=== PATIENT | female | born 1945 | race American Indian/Alaskan Native ===

== ENCOUNTER 2019-08-25 09:49 | Outpatient (CLI) | payer MEDICARE, BC, OTHER ==
[~2019-08-25 09:49] MED LIST: GARL1TAB2 PO; LANS30TA4 PO; LEVO100T PO; METF-436 PO; OMEG1CAP2 PO; ROSU5TAB4 PO; VITC500T PO
[2019-08-25 10:28] LABS: D-DIMER 0.23 MG/L FEU (0-0.50)
== END 2019-08-25 23:59 | disposition home or self-care (01) ==
LOC: LAB 09:49
PROVIDERS: ATTEND Family Medicine
DX: R60.0 Localized edema (principal); E11.9 Type 2 diabetes mellitus without complications; F17.200 Nicotine dependence, unspecified, uncomplicated
CPT/HCPCS: 36415; 85379

== ENCOUNTER 2021-08-29 16:04 | Emergency (ER) | payer MEDICARE, BC, OTHER ==
[~2021-08-29] VITALS: Ht 167.6 cm; Wt 87.3 kg
[2021-08-29 16:15] VITALS: BP 117/60
[2021-08-29 17:06] LABS: BASOPHILS % (AUTO) 0.4 % (0-1); EOSINOPHILS # (AUTO) 0.1 X10'3 (0-0.9); HEMATOCRIT 37.9 % (35.0-45.0); HEMOGLOBIN 12.9 g/dl (12.0-16.0); LYMPHOCYTES # (AUTO) 2.6 X10'3 (1.1-4.8); LYMPHOCYTES % (AUTO) 36.2 % (21-51); MEAN CORPUSCULAR HEMOGLOBIN 28.5 PG (27.0-31.0); MEAN CORPUSCULAR VOLUME 83.9 FL (78-98); MEAN PLATELET VOLUME 9.3 FL (7.4-10.4); MONOCYTES # (AUTO) 0.6 X10'3 (0-0.9); MONOCYTES % (AUTO) 7.9 % (2-12); NEUTROPHILS % (AUTO) 54.5 % (42-75); PLATELET COUNT 194 X10'3 (140-440); RED BLOOD COUNT 4.52 X10'6 (4.20-5.60); RED CELL DISTRIBUTION WIDTH 13.9 % (11.5-14.5); WHITE BLOOD COUNT 7.3 X10'3 (4.5-11.0)
[2021-08-29 17:31] LABS: ALANINE AMINOTRANSFERASE 28 U/L (12-78); ALBUMIN 3.6 G/DL (3.4-5.0); ALBUMIN/GLOBULIN RATIO 1.1 (1.1-1.5); ALKALINE PHOSPHATASE 100 IU/L (46-116); ANION GAP 10 (8-16); ASPARTATE AMINO TRANSFERASE 23 U/L (10-37); BILIRUBIN,TOTAL 0.3 MG/DL (0.1-1.0); BLOOD UREA NITROGEN 10 MG/DL (7-18); BUN/CREATININE RATIO 9.9 (6.6-38.0); CALCIUM 8.7 MG/DL (8.5-10.1); CHLORIDE 103 MMOL/L (99-107); CREATININE 1.01 MG/DL (0.40-0.90); GLUCOSE 113 MG/DL (70-104); LIPASE 86 U/L (73-393); POTASSIUM 4.3 MMOL/L (3.5-5.1); SODIUM 138 MMOL/L (135-145); eGFR 53 ML/MIN
[2021-08-29] MEDS ORDERED: iohexol 350MG/ML 100ml bottle IV ONE (17:34)
[2021-08-29] MEDS ORDERED: MESSAGE TO NURSING PO SCH (17:45)
[2021-08-29] MEDS ORDERED: ondansetron/PF 4mg/2ml inj IV ONE (18:00)
[2021-08-29] MEDS ORDERED: ketorolac tromethamine 15mg/ml inj. IV ONE (18:00)
[2021-08-29] MEDS ORDERED: morphine 4 MG/ML inj SYRINge IV ONE (18:00)
[2021-08-29 18:40] LABS: CLARITY,URINE CLEAR (Clear); COLOR,URINE STRAW (Yellow); GLUCOSE, URINE NEGATIVE (Neg); KETONES,URINE NEGATIVE (Neg); OCCULT BLOOD,URINE NEGATIVE (Neg); PROTEIN,URINE NEGATIVE (Neg); UA COLLECTION TYPE CLN CATCH MIDSTREAM
[2021-08-29 18:41] LABS: LEUKOCYTE ESTERASE ,URINE NEGATIVE (Neg); NITRITES, URINE NEGATIVE (Neg); UROBILINOGEN,URINE 0.2 E.U/dL (0.2-1.0)
[2021-08-29] MEDS ORDERED: ORPH100T2 PO (18:45)
== END 2021-08-29 19:34 | disposition home or self-care (01) ==
LOC: ER 16:04
DX: M54.50 Low back pain, unspecified (principal); I10 Essential (primary) hypertension; R30.0 Dysuria; E78.00 Pure hypercholesterolemia, unspecified; K21.9 Gastro-esophageal reflux disease without esophagitis; E11.9 Type 2 diabetes mellitus without complications; G89.29 Other chronic pain; Z90.49 Acquired absence of other specified parts of digestive tract; Z90.710 Acquired absence of both cervix and uterus; Z98.890 Other specified postprocedural states; Z88.6 Allergy status to analgesic agent; Z88.8 Allergy status to other drugs, medicaments and biological substances; Z79.899 Other long term (current) drug therapy
CPT/HCPCS: 36415; 71275; 74174; 80053; 81003; 83605; 83690; 84145; 84484; 85025; 96374; 96375; 99285; J1885; J2270; J2405; Q9967

== ENCOUNTER 2022-04-14 09:58 | Emergency (ER) | payer MEDICARE, BC, OTHER ==
[~2022-04-14] VITALS: Ht 152.4 cm; Wt 85.9 kg
[~2022-04-14 09:58] MED LIST changes: +ORPH100T2 PO
[2022-04-14 10:09] VITALS: BP 106/62
[2022-04-14] MEDS ORDERED: SULF1TAB49 PO (14:02)
[2022-04-14] MEDS ORDERED: sulfamethoxazole/trimethoprim DS (800/160mg) tablet PO ONE (14:05)
== END 2022-04-14 14:11 | disposition home or self-care (01) ==
LOC: ER 09:59
DX: N76.4 Abscess of vulva (principal); E78.00 Pure hypercholesterolemia, unspecified; K21.9 Gastro-esophageal reflux disease without esophagitis; E11.9 Type 2 diabetes mellitus without complications; G89.29 Other chronic pain; Z90.49 Acquired absence of other specified parts of digestive tract; Z90.710 Acquired absence of both cervix and uterus; Z98.890 Other specified postprocedural states; Z88.6 Allergy status to analgesic agent; Z79.2 Long term (current) use of antibiotics; Z79.899 Other long term (current) drug therapy
CPT/HCPCS: 56405; 99284

== ENCOUNTER 2023-02-22 10:23 | Emergency (ER) | payer MEDICARE, BC, OTHER ==
[~2023-02-22] VITALS: Ht 152.4 cm; Wt 82.4 kg
[~2023-02-22 10:23] MED LIST changes: -ORPH100T2 PO; +ORPH100T4 PO
[2023-02-22] MEDS ORDERED: FURO-149 PO ×2 (12:02→12:26)
[2023-02-22 12:28] VITALS: BP 116/59
== END 2023-02-22 12:30 | disposition home or self-care (01) ==
LOC: ER 10:23
DX: R60.0 Localized edema (principal); M79.604 Pain in right leg; E78.00 Pure hypercholesterolemia, unspecified; K21.9 Gastro-esophageal reflux disease without esophagitis; E11.9 Type 2 diabetes mellitus without complications; G89.29 Other chronic pain; M54.9 Dorsalgia, unspecified; Z90.49 Acquired absence of other specified parts of digestive tract; Z88.6 Allergy status to analgesic agent; Z88.8 Allergy status to other drugs, medicaments and biological substances; Z79.899 Other long term (current) drug therapy
CPT/HCPCS: 93970; 99284

== ENCOUNTER 2023-10-03 11:59 | Emergency (ER) | payer MEDICARE, BC, OTHER ==
[~2023-10-03] VITALS: Ht 152.4 cm; Wt 85.6 kg
[~2023-10-03 11:59] MED LIST changes: +FURO-149 PO
[2023-10-03 12:01] VITALS: BP 125/51; PULSE 83; RESP 16; TEMP 98.2; O2SAT 99
== END 2023-10-03 13:37 | disposition home or self-care (01) ==
LOC: ER 12:00
DX: R68.84 Jaw pain (principal); E78.00 Pure hypercholesterolemia, unspecified; E11.9 Type 2 diabetes mellitus without complications; G89.29 Other chronic pain; Z90.710 Acquired absence of both cervix and uterus; Z88.6 Allergy status to analgesic agent; Z88.8 Allergy status to other drugs, medicaments and biological substances; Z79.899 Other long term (current) drug therapy
CPT/HCPCS: 70100; 99283

== ENCOUNTER 2024-12-13 10:07 | Day surgery (SDC) | payer MEDICARE, BC, OTHER ==
[~2024-12-13] VITALS: Ht 160 cm; Wt 81.8 kg
[2024-12-13 11:05] VITALS: BP 104/85; PULSE 72; RESP 19
[2024-12-13] MEDS ORDERED: DEXL60CA3 (11:14)
[2024-12-13] MEDS ORDERED: LIDOcaine 2% Viscous 15ml cup ONE (11:16)
[2024-12-13] MEDS ORDERED: MIDAZolam 1 MG/ML 5ML VIAL ONE (11:23)
[2024-12-13] MEDS ORDERED: fentaNYL/PF 50MCG/1 ML 2ML syringe ONE (11:23)
[2024-12-13] MEDS ORDERED: simethicone 40mg/0.6ml oral drops 30ml ONE (11:25)
[2024-12-13 11:35] VITALS: BP 112/64; PULSE 69; RESP 17; O2SAT 96
[2024-12-13 11:45] VITALS: BP 117/66; PULSE 67; RESP 18; O2SAT 95
[2024-12-13 11:55] VITALS: BP 107/64; PULSE 66; RESP 15; O2SAT 96
[2024-12-13 12:05] VITALS: BP 115/65; PULSE 65; RESP 18; O2SAT 96
== END 2024-12-13 12:08 | disposition home or self-care (01) ==
LOC: GI LAB 10:07
PROVIDERS: ATTEND Internal Medicine Gastroenterology
DX: R12 Heartburn (principal); K21.00 Gastro-esophageal reflux disease with esophagitis, without bleeding; K44.9 Diaphragmatic hernia without obstruction or gangrene; K29.70 Gastritis, unspecified, without bleeding
CPT/HCPCS: 43239; 88305; 88342; A4620; G0500; J2250; J3010; J7030; Z7512; 99152